=== PATIENT | male | born 1965 | race Caucasian/White ===

== ENCOUNTER 2016-10-31 07:36 | Day surgery (SDC) | payer OTHER ==
[~2016-10-31] VITALS: Ht 188 cm; Wt 149.0 kg
[~2016-10-31 07:36] MED LIST: ATRV10T PO; BUPR150T9 PO; DIVA125T2 PO; LAMO25TA PO; LISI2.5T PO; LORA0.5T PO; Lactated Ringer's 1,000 ML IV ONE; MELO-253 PO; OMEP10CA4 PO; PRAZ1CAP2 PO
[2016-10-31] MEDS ORDERED: Propofol 10,000 mCg/mL 20 mL Inj ONE (07:37)
[2016-10-31 07:57] VITALS: BP 121/66; PULSE 92; RESP 18; O2SAT 96
[2016-10-31] MEDS ORDERED: DEP500ER PO (08:04)
[2016-10-31] MEDS ORDERED: OMEP20CA11 PO (08:04)
[2016-10-31] MEDS ORDERED: BUPR100T15 PO (08:04)
[2016-10-31] MEDS ORDERED: Ondansetron 2 mg/mL 2 mL Inj IVPUSH PRN (09:00)
[2016-10-31] MEDS ORDERED: MetoCLOpramide 5 mg/mL 2 mL Inj IVPUSH PRN (09:00)
[2016-10-31] MEDS ORDERED: Lactated Ringer's 1,000 ML IV SCH (09:00)
[2016-10-31 09:20] VITALS: BP 143/83; PULSE 83; RESP 14; O2SAT 96
[2016-10-31 09:30] VITALS: BP 134/87; PULSE 90; RESP 16; O2SAT 97
--- NOTE | 2016-10-31 09:34 | ENDO ---
[address] [address] ENDOSCOPY PROCEDURE PATIENT: MELISSA GUPTA : 1965 MR#: [id number] ADMIT: 10/31/2016 JOB ID: [id number] DATE: 10/31/2016 PROCEDURE: Esophagogastroduodenoscopy. INDICATION: Nausea. The patient's ASA classification, Mallampati score and medications as per Dr. Munir Lopez's anesthesia report. INSTRUMENT USED: GIF H 180 J. PROCEDURE DETAILS: After informed consent was obtained, the patient was brought into the GI suite, where he was placed on oxygen via nasal cannula and monitored with continuous pulse oximeter, telemetry and blood pressure monitoring. A time-out was performed. Then, he was placed in the left lateral decubitus position and medications were administered for sedation. A bite block was placed. Medications were then administered for sedation. The standard EGD scope was inserted through the bite block and advanced under direct visualization to the second portion of the duodenum without difficulty. FINDINGS: 1. Normal appearing duodenal bulb, first and second portion. Multiple random biopsies were obtained. 2. Normal-appearing pylorus, antrum and gastric body. 3. Retroflexed views in the gastric body revealed a normal-appearing cardia and fundus. 4. Multiple random biopsies were obtained throughout the antrum and body of the stomach. 5. The GE junction was at approximately 43 cm, which coincided with the top of the gastric folds. Arising from the GE junction to approximately 39 cm were several tongues of salmon-colored mucosa suggestive of Foreman's. Multiple biopsies were obtained. The remainder of the esophagus appeared unremarkable. 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 RECOMMENDATIONS: 1. Await biopsy results. If biopsies are unremarkable, will recommend patient obtain a gastric emptying study to further evaluate patient's complaint of nausea. Also recommend that he lose weight. 2. Continue PPI.
[2016-10-31 09:41] VITALS: BP 151/86; PULSE 85; RESP 16; O2SAT 98
--- NOTE | 2016-10-31 11:26 | PCM.ANEP1 ---
Post Anesthesia PACU Phase 1 Assessment Vital Signs Vital Signs Date Time Temp Pulse Resp B/P Pulse Ox O2 Delivery O2 Flow Rate FiO2 10/31/16 09:41 85 16 151/86 98 Room Air 10/31/16 09:30 90 16 134/87 97 Room Air 10/31/16 09:20 83 14 143/83 96 Room Air 10/31/16 07:57 92 18 121/66 96 Room Air Anesthetic Administered: GA, MAC Level of Alertness: Awake, talking VANN's with Equal Strength: Yes Pain: No Nausea or Vomiting: No CV Function & Hydration Stable: Yes Airway Device: N/A Oxygen Delivery: Room Air Lungs: Clear to Auscultation, Diminished Dermatome Level: Full Sensation PACU Phase 2 Assessment Complications: No Follow up Care: N/A Patient Instructions Provided: N/A Munir Lopez MD Oct 31, 2016 11:26
--- NOTE | 2016-10-31 11:26 | PCM.HPANE ---
Patient Data Surgeon Admitting Provider: Attending Provider:Georgia Portillo MD Primary Care Physician:Chet Ku MD Other Provider:Kelly Gaming Anesthesia Reason for Visit GERD Ht/WT & BMI Height (Feet): 6 Height (Inches): 2 Weight (Kilograms): 149 Body Mass Index 42.00 Allergies Coded Allergies: morphine (Verified Adverse Reaction, Mild, NAUSEA/VOMITTING, 10/30/16) Uncoded Allergies: opiates (Adverse Reaction, Mild, NAUSEA/VOMITTING, 04/11/16) Past Anesthesia History Anesthesia History: Denies:: Abnormal Airway, Anesthesia Reactions, Difficult Intubation, Fam Anesthesia Reaction, Fam Malignant Hypertherm, Malignant Hyperthermia Diabetes History Hx Diabetes?: No MRSA MRSA: No Medications Reported Medications Bupropion 100 Mg Ryqvar206 Mg PO BID Ref 0 10/31/16 Divalproex ER (Depakote ER)500 Mg Tablet1,500 Mg PO DAILY Ref 0 *DAILY USE ONLY* Swallowed whole without chewing to avoid local irritation of the mouth and throat. 10/31/16 Omeprazole 20 Mg Capsule.dr20 Mg PO BID Ref 0 10/31/16 Meloxicam 15 Mg Jtzhul81 Mg PO DAILY 30 Days Ref 0 10/30/16 Lisinopril 2.5 Mg Ujgdwl43 Mg PO DAILY 30 Days Ref 0 03/13/16 Atorvastatin (Lipitor)10 Mg Tab10 Mg PO DAILY Ref 0 03/13/16 Discontinued Reported Medications Prazosin 1 Mg Capsule1 Mg PO HS 03/13/16 Omeprazole 10 Mg Capsule.dr10 Mg PO BID Ref 0 03/13/16 Lorazepam 0.5 Mg Tablet0.5 Mg PO HS PRN For Insomnia Ref 0 03/13/16 Lamotrigine 25 Mg Bvnoxv56 Mg PO BID Ref 0 03/13/[address] (Depakote DR)125 Mg Zqxmle820 Mg PO BID Ref 0 Swallowed whole without chewing to avoid local irritation of the mouth and throat. 03/13/16 Bupropion HCl (Zyban)150 Mg Tablet.er150 Mg PO 03/13/16 History History of ENT Problems?: No HEENT History: Positive for:: Hearing Problem (PARTIAL) Denies:: Abnormal Airway Cataracts Difficult Intubation Dysphagia Glaucoma Sinus Problem TMJ Denture Type: None Teeth Condition: Within Normal Limits Hx of Heart Problems?: Yes Cardiovascular History: Positive for:: Hypertension Denies:: AICD Abdominal Aortic Aneurism Atrial Fibrillation Cardiac Surgery Chest Pain Congestive Heart Failure Coronary Artery Disease Edema Heart Murmur Irregular Heartbeat Pacemaker Peripheral Vascular Rheumatic Fever Thrombophlebitis Valvular Heart Disease Hx of Respiratory Problem?: No Respiratory History: Denies:: Asthma COPD Chest Surgery Cough Dyspnea Emphysema Hemoptysis Oxygen Administration Pneumonia Pulmonary Embolism Tuberculosis Use of C-PAP Machine Use of Inhalers / NEBS Hx Neurologic Problems?: No Neurological History: Denies:: Alzheimer's Disease CVA Dementia Dizziness Headaches Multiple Sclerosis Parkinson's Disease Peripheral Neuropathy Seizures TIA Hx of GI Problems?: Yes Gastrointestinal History: Denies:: Cirrhosis Diverticulitis Gall Bladder Disease Gastroesphageal Reflux Gastrointestinal Bleeding Heartburn Hepatitis Hiatal Hernia Liver Disease Rectal Bleeding Hx of Problems?: No Genitourinary History: Denies:: HX of Hemodialysis Kidney Stones Urinary Tract Infection HX of Peritoneal Dialysis: No Male Hx: Denies:: Prostate Problems Scrotal Mass Testicular Surgery Skin History: Denies:: History Skin Disorders? Pressure Ulcers Hx Musculoskeletal Problems?: No Musculoskeletal History: Denies:: Back Injury Degenerative Joint Fibromyalgia Joint Replacement Musculoskeletal Trauma Myasthenia Gravis Osteoarthritis Rheumatoid Arthritis Systemic Lupus Hx of Psycho/Social Problems?: No Psycho Social History: Positive for:: Anxiety Hx Depression Denies:: Bipolar Disorder Suicide Attempt Hx Surgeries?: Yes Hx Any Other Health Problems?: Yes Other History: Denies:: Cancer Endocrine Disease Hospitalization Thyroid Disease History Blood Transfusions: Denies:: Accept Blood Products? Blood Transfuse Reaction Blood Transfusions Hx Diabetes: No Hx Alcohol Use: Yes (OCCAS) Stop/Bang Treated for Sleep Apnea?: No S-Snoring: Do You Snore Loudly: Yes T-Tired: feel tired, fatigued: Yes O-Obsered: Observed not breath: Yes P-Blood Pressure: treated: Yes B- Body Mass Index > 35 kg/m2: Yes A- Age over 50: Yes N- Neck Large Circumference: Yes G- Gender Male: Yes PATSY Total Score: 8 Risk Assessment Category Category 1A: Patient has history of documented sleep apnea, and HAS NOT received any narcotic, sedative or anesthesia administration during this stay. Category 1B: Patient has history of documented sleep apnea, and HAS received any narcotic , sedative or anesthesia administration during this stay Category 2: Patient has SUSPECTED Obstructive Sleep Apnea, and HAS received any narcotic , sedative or anesthesia administration during this stay. Category 3: Patient has SUSPECTED Obstructive Sleep Apnea and HAS NOT received narcotic, sedative or anesthesia administration during this stay. Category 4: Outpatient in Procedural Areas with known sleep apnea or who screen positive for High Risk via the STOP/BANG questionnaire. Exam Exam Vital Signs Vital Signs Date Time Temp Pulse Resp B/P Pulse Ox O2 Delivery O2 Flow Rate FiO2 10/31/16 07:57 92 18 121/66 96 Room Air General Appearance: Alert, Oriented X3, Cooperative, No Acute Distress HEENT/AIRWAY: MP 2, Neck Movement (FROM, large neck circumference) Lungs: Clear to Auscultation, Diminished Heart: Exam Unremarkable, Regular Rate/Rhythm, No Murmurs/Rubs/Gallops Plan Impression Patient chart reviewed, patient interviewed and anesthestic plan with risks, benefits, and alternatives discussed, and informed consent obtained. NPO per Anesth. Guidelines: Yes ASA Physical Status: ASA3 Severe Disease (BMI 42) Anesthetic Plan: GA, MAC Bene/Risks/Altern/Consents: Yes HP Complete Prior to Induction: Yes Munir Lopez MD Oct 31, 2016 09:00
--- NOTE | 2016-11-01 10:22 | PATH ---
SURGICAL PATHOLOGY Attending Physician:Priti Cordoba CASE STATUS: Signed Out PATIENT NAME: MELISSA GUPTA PID: [id number] : 1965 DATE COLLECTED:10/31/2016 18:21 SPECIMEN: 1: Esophagus, Biopsy 2: Gastric, Biopsy 3: Duodenum, Biopsy CLINICAL HISTORY: GERD, ? BARRETTS 1). DISTAL ESOPHAGUS BIOPSY 2). GASTRIC BIOPSY 3). DUODENAL BIOPSY FINAL DIAGNOSIS: 1.DISTAL ESOPHAGUS BIOPSY: FRAGMENTS OF SQUAMOUS MUCOSA AND GASTRIC CARDIA-TYPE MUCOSA POSITIVE FOR SPECIALIZED METAPLASIA OF WALL' S-TYPE ESOPHAGUS. Negative for dysplasia and malignancy. Negative for squamous intraepithelial eosinophils. 2.GASTRIC BIOPSY: MILD SUPERFICIAL CHRONIC GASTRITIS INVOLVING FUNDIC MUCOSA. Negative for evidence of Helicobacter on H&E stain. Negative for intestinal metaplasia. Negative for dysplasia and malignancy. 3.DUODENAL BIOPSY: CHANGES OF CHRONIC DUODENITIS WITH AREAS OF FOVEOLAR METAPLASIA. Negative for evidence of celiac disease. Negative for dysplasia and malignancy. ICD10 K22.71 GROSS DESCRIPTION: The specimen is received in three formalin filled containers labeled with the patient's name. 1). The specimen is sublabeled "distal esophagus" and consists of multiple portions of tissue which aggregate to 0.4 x 0.4 x 0.2 CM. The specimen is entirely submitted in cassette 1A. 2). The specimen is sublabeled "gastric" consists of portions of tissue which aggregate to 0.3 x 0.2 x 0.2 CM. The specimen is entirely submitted in cassette 2A. 3). The specimen is sublabeled "duodenal" and consists of 3 portions of tissue which aggregate to 0.3 x 0.3 x 0.2 CM. The specimen is entirely submitted in cassette 3A. 10/31/2016 [facility] MICRO DESCRIPTION: See diagnosis. ICD-9 CODES: CPT CODES: 1: 05926 2: 14249 3: 65646 Electronically Signed Out Matt Negrete MD [facility] Pathology [facility] [address], [place] [address] Technical component performed at [facility], [facility] [address], [place], [address]
== END 2016-10-31 23:59 | disposition home or self-care (01) ==
LOC: END 07:36
PROVIDERS: ATTEND Internal Medicine Gastroenterology
DX: K21.9 Gastro-esophageal reflux disease without esophagitis (principal); K22.70 Barrett's esophagus without dysplasia; K29.80 Duodenitis without bleeding; K29.50 Unspecified chronic gastritis without bleeding
CPT/HCPCS: 43239; J7120